=== PATIENT | female | born 1995 | race Caucasian/White ===

== ENCOUNTER 2023-12-18 19:04 | Emergency (ER) | payer OTHER ==
[~2023-12-18] VITALS: Ht 157.4 cm; Wt 45.8 kg
[2023-12-18] MEDS ORDERED: EFFEXOR XR75 M1 PO (19:24)
[2023-12-18] MEDS ORDERED: ZANAFLEX4 MG PO (21:11)
[2023-12-18] MEDS ORDERED: NAPROSYN500 MG PO (21:11)
== END 2023-12-18 21:31 | disposition home or self-care (01) ==
LOC: ED 19:04
DX: S20.211A Contusion of right front wall of thorax, initial encounter (principal); F32.A Depression, unspecified; F41.9 Anxiety disorder, unspecified; W01.198A Fall on same level from slipping, tripping and stumbling with subsequent striking against other object, initial encounter; Y93.89 Activity, other specified; Y92.89 Other specified places as the place of occurrence of the external cause; Y99.8 Other external cause status